=== PATIENT | female | born 1950 | race Caucasian/White ===

== ENCOUNTER 2017-07-04 14:58 | Emergency (ER) | payer OTHER | END 2017-07-04 17:40 | disposition home or self-care (01) | LOC: FTE 14:58 | DX: J06.9 Acute upper respiratory infection, unspecified (principal); I10 Essential (primary) hypertension; Z79.82 Long term (current) use of aspirin | CPT/HCPCS: 71045; 99284-25 ==

== ENCOUNTER 2017-09-04 17:11 | Emergency (ER) | payer SELFPAY, OTHER | END 2017-09-04 17:20 | disposition left against medical advice (07) | LOC: E/R 17:11 | DX: Z53.21 Procedure and treatment not carried out due to patient leaving prior to being seen by health care provider (principal) ==